=== PATIENT | male | born 1960 | race Caucasian/White ===

== ENCOUNTER 2019-02-05 19:53 | Emergency (ER) | payer OTHER ==
[~2019-02-05] VITALS: Ht 180.3 cm; Wt 117.9 kg
[2019-02-05 20:04] VITALS: BP_SYST 106
[2019-02-05] MEDS ORDERED: IBUPROFEN 600 MG TABLET PO ONE (22:00)
[2019-02-05 22:30] VITALS: BP_SYST 112
== END 2019-02-05 22:30 | disposition home or self-care (01) ==
LOC: SED 19:53
DX: M25.562 Pain in left knee (principal); I10 Essential (primary) hypertension; F32.9 Major depressive disorder, single episode, unspecified; F41.9 Anxiety disorder, unspecified; F17.200 Nicotine dependence, unspecified, uncomplicated; W06.XXXA Fall from bed, initial encounter; Y93.89 Activity, other specified; Y92.89 Other specified places as the place of occurrence of the external cause; Y99.8 Other external cause status
CPT/HCPCS: 73564; 99283

== ENCOUNTER 2019-02-08 20:43 | Inpatient (IN) | payer OTHER ==
[~2019-02-08] VITALS: Ht 180.3 cm; Wt 114.8 kg
[2019-02-08 20:45] VITALS: BP_SYST 94
[2019-02-08] MEDS ORDERED: NACL 0.9% 1,000 ML IV ONE (21:15)
[2019-02-08 21:44] LABS: HEMATOCRIT 26.8 % (36-54); HEMOGLOBIN 8.9 g/dL (14.0-18.0); MEAN CORPUSCULAR HEMOGLOBIN 35 pg (27-31); MEAN CORPUSCULAR HGB CONC 33 % (32-36); MEAN CORPUSCULAR VOLUME 105 fL (79.0-98.0); RED BLOOD CELL COUNT(AUTO) 2.56 MIL/uL (4.2-6.2); RED CELL DISTRIBUTION WIDTH 20.1 % (9.0-15.0); WHITE BLOOD COUNT (AUTO) 18.3 K/uL (4.8-10.8)
[2019-02-08 21:48] LABS: ANION GAP 16 (5-15); CALCIUM 8.2 mg/dL (8.4-11.0); CHLORIDE 101 mmol/L (98-107); CREATININE 3.62 mg/dL (0.55-1.30); GLUCOSE 55 mg/dL (70-99); POTASSIUM 3.2 mmol/L (3.5-5.1); SODIUM SERUM 137 mmol/L (136-145); UREA NITROGEN, BLOOD 32 mg/dL (8-21)
[2019-02-08 21:52] LABS: GFR AFRICAN AMERICAN 22 mL/min (>90)
[2019-02-08 21:56] LABS: ALANINE AMINOTRANSFERASE 59 U/L (12-78); ALBUMIN 1.4 g/dL (3.4-4.8); ALCOHOL, BLOOD 214 mg/dL (<10); ASPARTATE AMINOTRANSFERASE 199 U/L (10-37); TOTAL BILIRUBIN 9.2 mg/dL (0.0-1.0)
[2019-02-08 22:24] LABS: PLATELET COUNT (AUTO) 38 K/uL (130-430)
[2019-02-08 22:26] LABS: ATYPICAL LYMPHOCYTES % 0 % (0-0); BAND % (MANUAL) 50 % (0-6); BASOPHILS % (MANUAL) 0 % (0-2); EOSINOPHILS % (MANUAL) 0 % (0-7); LYMPHOCYTES % (MANUAL) 4 % (20-46); METAMYELOCYTES % 2 % (0-0); MONOCYTES % (MANUAL) 5 % (0-11); MYELOCYTES % 0 % (0-0)
[2019-02-09 01:40] VITALS: BP_SYST 98
[2019-02-09] MEDS: cefTRIAXone 1 GM IVPB PREMIX 50 ML IV SCH ×2 (02:31→22:13)
[2019-02-09] MEDS ORDERED: cefTRIAXone 1 GM IVPB PREMIX 50 ML IV ONE (02:33)
[2019-02-09 04:00] VITALS: BP_SYST 101
[2019-02-09] MEDS ORDERED: KCL 20 mEq in D5NS 1000 mL 1,000 ML IV SCH (04:30)
[2019-02-09] MEDS ORDERED: POTASSIUM CHLORIDE 20 MEQ TAB.PRT.SR PO ONE (04:30)
[2019-02-09] MEDS ORDERED: ACETAMINOPHEN 325 MG TABLET PO PRN (04:30)
[2019-02-09] MEDS ORDERED: NS IV ONE (05:42)
[2019-02-09] MEDS ORDERED: KCL IV ONE (05:42)
[2019-02-09] MEDS ORDERED: KCL 20 mEq in D5NS 1000 mL 1,000 ML IV ONE (05:50)
[2019-02-09 08:00] VITALS: BP_SYST 109
[2019-02-09] MEDS: chlordiazePOXIDE HCL 25 MG CAPSULE PO PRN ×2 (08:56→22:13)
[2019-02-09] MEDS ORDERED: MAGNESIUM SULFATE/D5W 100 ML IV ONE (09:00)
[2019-02-09] MEDS: FOLIC ACID 5 MG/ML VIAL IV SCH (11:19)
[2019-02-09] MEDS: THIAMINE HCL 100 MG, MVI 10 ML in NACL 0.9% 1,000 ML IV SCH (11:58)
[2019-02-09 12:08] VITALS: BP_SYST 118
[2019-02-09 15:01] LABS: BILIRUBIN,URINE 3+ (NEGATIVE); BLOOD, URINE 3+ (NEGATIVE); CLARITY/URINE HAZY (CLEAR); COLOR,URINE BROWN (YELLOW); GLUCOSE,URINE TRACE (NEGATIVE); KETONES,URINE TRACE (NEGATIVE); LEUKOCYTE ESTERASE ,URINE 3+ (NEGATIVE); NITRITE, URINE POSITIVE (NEGATIVE); PROTEIN URINE 3+ (NEGATIVE)
[2019-02-09 15:20] LABS: BACTERIA,URINE FEW /HPF (None Seen); MUCUS,URINE None Seen /LPF (None Seen); WBC,URINE 80-100 /HPF (0-3)
[2019-02-09 16:40] VITALS: BP_SYST 111
[2019-02-09 17:32] LABS: INR 2.8 (0.80-1.20); PROTHROMBIN TIME 27.6 SECS (9.5-12.5)
[2019-02-09 20:05] VITALS: BP_SYST 113
[2019-02-09 20:26] LABS: ACETAMINOPHEN 2 ug/mL (1-30)
[2019-02-09] MEDS: PENTOXIFYLLINE 400 MG TABLET.SA (TRENtal) PO SCH (22:13)
[2019-02-10 00:09] VITALS: BP_SYST 106
[2019-02-10] MEDS: chlordiazePOXIDE HCL 25 MG CAPSULE PO PRN ×3 (03:23→22:12)
[2019-02-10 06:38] LABS: HEMATOCRIT 22.5 % (36-54); HEMOGLOBIN 7.6 g/dL (14.0-18.0); MEAN CORPUSCULAR HEMOGLOBIN 35 pg (27-31); MEAN CORPUSCULAR HGB CONC 34 % (32-36); MEAN CORPUSCULAR VOLUME 103 fL (79.0-98.0); RED BLOOD CELL COUNT(AUTO) 2.18 MIL/uL (4.2-6.2); RED CELL DISTRIBUTION WIDTH 19.4 % (9.0-15.0); WHITE BLOOD COUNT (AUTO) 24.7 K/uL (4.8-10.8)
[2019-02-10 06:53] LABS: PLATELET COUNT (AUTO) 41 K/uL (130-430)
[2019-02-10 07:00] LABS: PROTHROMBIN TIME 29.5 SECS (9.5-12.5)
[2019-02-10 07:01] LABS: ALBUMIN 1.3 g/dL (3.4-4.8); BILIRUBIN,DIRECT 8.4 mg/dL (0.0-0.3); TOTAL BILIRUBIN 11.3 mg/dL (0.0-1.0)
[2019-02-10 07:14] LABS: CREATININE 4.6 mg/dL (0.55-1.30); POTASSIUM 3.7 mmol/L (3.5-5.1)
[2019-02-10 08:00] VITALS: BP_SYST 98
[2019-02-10 08:23] LABS: BAND % (MANUAL) 6 % (0-6); BASOPHILS % (MANUAL) 0 % (0-2); EOSINOPHILS % (MANUAL) 0 % (0-7); LYMPHOCYTES % (MANUAL) 10 % (20-46); MONOCYTES % (MANUAL) 2 % (0-11)
[2019-02-10 08:24] LABS: BLASTS, MANUAL % 4 % (0-0); METAMYELOCYTES % 1 % (0-0)
[2019-02-10] MEDS: PENTOXIFYLLINE 400 MG TABLET.SA (TRENtal) PO SCH ×3 (09:35→16:58)
[2019-02-10] MEDS: THIAMINE HCL 100 MG, MVI 10 ML in NACL 0.9% 1,000 ML IV SCH (09:36)
[2019-02-10] MEDS ORDERED: NACL 0.9% 1,000 ML IV SCH (12:00)
[2019-02-10] MEDS: FOLIC ACID 5 MG/ML VIAL IV SCH (12:29)
[2019-02-10 12:45] VITALS: BP_SYST 119
[2019-02-10] MEDS ORDERED: FUROSEMIDE 40 MG/4 ML VIAL IVP ONE (16:00)
[2019-02-10 16:30] VITALS: BP_SYST 113
[2019-02-10] MEDS ORDERED: GENTAMICIN 80 mg/100 mL NS 100 ML IV ONE (18:00)
[2019-02-10 20:00] VITALS: BP_SYST 108
[2019-02-10] MEDS ORDERED: GENTAMICIN 100 mg/50 mL NS 50 ML IV ONE ×2 (20:00→22:39)
[2019-02-10] MEDS ORDERED: metroNIDAZOLE 500 mg/NS 100 ML IV ONE (22:39)
[2019-02-11 00:34] VITALS: BP_SYST 121
[2019-02-11] MEDS: cefTRIAXone 1 GM IVPB PREMIX 50 ML IV SCH (00:40)
[2019-02-11] MEDS: metroNIDAZOLE 250 mg/NS 50 ML IV SCH ×2 (01:48→06:37)
[2019-02-11 03:52] LABS: HEPATITIS A AB, IgM Negative (Negative); HEPATITIS B CORE AB, IgM Negative (Negative); HEPATITIS B SURFACE AG Negative (Negative)
[2019-02-11] MEDS: chlordiazePOXIDE HCL 25 MG CAPSULE PO PRN (05:06)
[2019-02-11 07:08] LABS: MEAN CORPUSCULAR HEMOGLOBIN 35 pg (27-31); MEAN CORPUSCULAR HGB CONC 33 % (32-36); MEAN CORPUSCULAR VOLUME 105 fL (79.0-98.0); PLATELET COUNT (AUTO) 71 K/uL (130-430); RED CELL DISTRIBUTION WIDTH 19.8 % (9.0-15.0)
[2019-02-11 07:13] LABS: ALBUMIN 1.1 g/dL (3.4-4.8); BILIRUBIN,DIRECT 9.6 mg/dL (0.0-0.3); CALCIUM 7.7 mg/dL (8.4-11.0); CREATININE 5.54 mg/dL (0.55-1.30); POTASSIUM 3.9 mmol/L (3.5-5.1); TOTAL BILIRUBIN 12.8 mg/dL (0.0-1.0)
[2019-02-11 07:23] LABS: INR 4.1 (0.80-1.20); PROTHROMBIN TIME 39.2 SECS (9.5-12.5)
[2019-02-11 07:48] LABS: RED BLOOD CELL COUNT(AUTO) 1.85 MIL/uL (4.2-6.2); WHITE BLOOD COUNT (AUTO) 36.8 K/uL (4.8-10.8)
[2019-02-11 07:49] LABS: HEMATOCRIT 19.4 % (36-54); HEMOGLOBIN 6.5 g/dL (14.0-18.0)
[2019-02-11 08:00] VITALS: BP_SYST 126
[2019-02-11] MEDS: PENTOXIFYLLINE 400 MG TABLET.SA (TRENtal) PO SCH (08:00)
[2019-02-11 08:08] LABS: AFP, TUMOR MARKER 2.3 ng/mL (0.0-8.3)
[2019-02-11] MEDS: FOLIC ACID 5 MG/ML VIAL IV SCH (09:00)
[2019-02-11] MEDS ORDERED: MORPHINE 2 MG/ML INJ. SYRINGE IVP PRN (09:30)
[2019-02-11 11:03] LABS: ATYPICAL LYMPHOCYTES % 0 % (0-0); BAND % (MANUAL) 15 % (0-6); BASOPHILS % (MANUAL) 0 % (0-2); CORRECTED WHITE BLOOD COUNT 34.7 K/uL (4.5-11.0); EOSINOPHILS % (MANUAL) 0 % (0-7); LYMPHOCYTES % (MANUAL) 8 % (20-46); METAMYELOCYTES % 4 % (0-0); MONOCYTES % (MANUAL) 12 % (0-11); MYELOCYTES % 2 % (0-0)
[2019-02-11 23:31] LABS: ANTI NUCLEAR AB WITH REFLEX Negative (Negative)
[2019-02-14 21:08] LABS: ANTI-SMOOTH MUSCLE AB 23 Units (0-19)
== END 2019-02-11 11:38 | disposition expired | DRG 871 ==
LOC: SED 20:43 → STU 02-09 01:03
PROVIDERS: ADMIT Family Medicine; ATTEND Family Medicine
DX: A41.50 Gram-negative sepsis, unspecified (principal); K72.00 Acute and subacute hepatic failure without coma; E43 Unspecified severe protein-calorie malnutrition; N17.9 Acute kidney failure, unspecified; F10.230 Alcohol dependence with withdrawal, uncomplicated; N12 Tubulo-interstitial nephritis, not specified as acute or chronic; D69.6 Thrombocytopenia, unspecified; F10.20 Alcohol dependence, uncomplicated; I10 Essential (primary) hypertension; F32.9 Major depressive disorder, single episode, unspecified; F41.1 Generalized anxiety disorder; F10.220 Alcohol dependence with intoxication, uncomplicated; E66.9 Obesity, unspecified; F17.210 Nicotine dependence, cigarettes, uncomplicated; K70.10 Alcoholic hepatitis without ascites; K70.31 Alcoholic cirrhosis of liver with ascites; K80.20 Calculus of gallbladder without cholecystitis without obstruction; Y90.7 Blood alcohol level of 200-239 mg/100 ml; Z79.899 Other long term (current) drug therapy; Z68.35 Body mass index [BMI] 35.0-35.9, adult
CPT/HCPCS: 36415; 70450-TC; 71045; 73552; 73560-TC; 73590-TC; 76700-TC; 76770; 78579; 78580-TC; 80048; 80053; 80074; 80076; 81000-TC; 82105; 82140-TC; 82248-TC; 82550-TC; 83516; 83605; 83735-TC; 83880; 84302-TC; 84484; 85007; 85027; 85379; 85610-TC; 86038; 86886; 86900; 86901; 86920; 87040-TC; 87086; 87186-TC; 93005; 93970; 99285; A9539; A9540; G0378; G0480; G0481; G0482; J0696; J1580; J1940; J3411; J3480; J3490; J7030